=== PATIENT | male | born 1975 ===

== ENCOUNTER 2024-10-04 02:55 | Emergency (ER) | payer MEDICARE, MEDICAID ==
[2024-10-04] MEDS: Aspirin 81 MG Tab.Chew PO ONE (02:58)
[2024-10-04 03:29] LABS: BASOPHILS ABSOLUTE AUTO 0.01 K/uL (0.02-0.10); BASOPHILS PERCENT AUTO 0.1 % (0.0-0.5); EOSINOPHILS ABSOLUTE AUTO 0.04 K/uL (0.04-0.40); EOSINOPHILS PERCENT AUTO 0.4 % (1.0-5.0); HEMOGLOBIN 15.5 g/dL (13.0-18.0); LYMPHOCYTES PERCENT AUTO 3.1 % (20.0-40.0); MEAN CORPUSCULAR HEMOGLOBIN 31.2 pg (27.0-32.0); MEAN CORPUSCULAR HGB CONC 34.4 g/dL (31.0-35.0); MEAN CORPUSCULAR VOLUME 91 fL (76-96); MEAN PLATELET VOLUME 10.1 fL (6.0-10.0); MONOCYTES ABSOLUTE AUTO 0.79 K/uL (0.20-0.80); MONOCYTES PERCENT AUTO 8.1 % (3.0-10.0); NEUTROPHILS ABSOLUTE AUTO 8.64 K/uL (2.00-7.50); NEUTROPHILS PERCENT AUTO 88.3 % (45.0-70.0); PLATELET COUNT,PLT 194 K/uL (150-400); RED BLOOD CELL COUNT 4.97 M/uL (4.50-6.50); RED CELL DISTRIBUTION WIDTH 13.4 % (11.0-16.0); WHITE BLOOD CELL COUNT,WBC 9.8 K/uL (4.0-11.0)
[2024-10-04 03:45] LABS: A/G RATIO 1.3 (0.8-2.0); ALANINE AMINOTRANSFERASE,ALT 21 U/L (12-78); ALBUMIN 3.9 g/dL (3.4-5.0); ALKALINE PHOSPHATASE 78 U/L (46-116); ANION GAP 15.3 mmol/L (5.0-15.0); ASPARTATE AMNIOTRANSFERASE,AST 17 U/L (15-37); BLOOD UREA NITROGEN,BUN 9 mg/dL (8-26); CALCIUM 8.7 mg/dL (8.5-10.1); CARBON DIOXIDE,CO2 26.5 mmol/L (21.0-32.0); CHLORIDE,CL 98 mmol/L (98-107); ESTIMATED GFR 104 mL/min (>60); GLUCOSE RANDOM 101 mg/dL (74-100); POTASSIUM,K 3.8 mmol/L (3.5-5.1); SODIUM,NA 136 mmol/L (136-145); TROPONIN I HIGH SENSITIVITY 4.5 pg/ml (<=60.4)
[2024-10-04] MEDS: GI Cocktail Oral Solution 30 ML PO ONE (03:45)
[2024-10-04] MEDS: Ondansetron 4 MG/2 ML SDV IVPUSH ONE (04:00)
[2024-10-04] MEDS: Albuterol/Ipratropium 3.0-0.5 MG/3 ML Neb Soln NEB ONE (04:08)
[2024-10-04] MEDS: LORazepam 2 MG/ML SDV IVPUSH ONE (04:29)
== END 2024-10-04 08:00 | disposition home or self-care (01) ==
LOC: LB.ED 02:55
DX: R07.89 Other chest pain (principal); R07.2 Precordial pain; Z91.018 Allergy to other foods; Z91.041 Radiographic dye allergy status; Z88.1 Allergy status to other antibiotic agents
CPT/HCPCS: 36415; 71045; 80053; 83690; 84484; 85025; 85379; 93005; 94640; 96374; 96375; 99285; A9270; J2060; J2405; J7620